=== PATIENT | male | born 1955 | race Caucasian/White ===

== ENCOUNTER 2023-12-28 07:50 | Day surgery (SDC) | payer MEDICARE, SELFPAY ==
--- NOTE | 2023-12-28 | PATH_ITS ---
[facility] Accession Number: [id number] No. of containers..02 Tissue . 01 Material submitted: . PART A: colon - ASCENDING POLYP PART B: sigmoid colon - SIGMOID POLYP . 01 Diagnosis: A. COLON POLYP, ASCENDING, POLYPECTOMY: Sessile serrated adenoma. . B. SIGMOID COLON, POLYP, POLYPECTOMY: Tubular adenoma. MRV 01/04/2024 1304 Local . 01 Electronically signed: . Kristin Valdez MD, Pathologist NPI- [id number] . 01 Gross description: . Part A: ASCENDING POLYP: Received in formalin are 2 fragment(s) of pearce, soft tissue measuring 0.1 x 0.1 x 0.1 cm to 0.3 x 0.3 x 0.3 cm submitted entirely in 1 cassette(s) Part B: SIGMOID POLYP: Received in formalin are 2 fragment(s) of pearce, soft tissue measuring 0.2 x 0.2 x 0.1 cm to 0.3 x 0.1 x 0.1 cm submitted entirely in 1 cassette(s) /DARLENE 12/29/2023 2252 Local . 01 Pathologist provided ICD-10: D12.6 . 01 CPT . 258354, [id number] Specimen Comment: A courtesy copy of this report has been sent to [phone] Performed at: [facility] [address] [place] [address] [id number] MD Tristan Elliott MD Phone: [phone]
[2023-12-28] MEDS: FLEETS ENEMA 1 EACH PR (08:09)
[2023-12-28] MEDS: LACTATED RINGERS 1,000 ML 42 ML IV (08:10)
[2023-12-28 08:21] VITALS: BP 121/81; PULSE 53; RESP 18; TEMP 36.3; O2SAT 99
--- NOTE | 2023-12-28 08:38 | PM.HP.1 ---
History of Present Illness History of Present Illness Date Patient Seen: 12/28/23 Time Patient Seen: 08:38 Chief complaint: Screening Colonoscopy Narrative: 68-year-old man here for screening colonoscopy. Last colonoscopy 15 years ago normal. No family history of intestinal malignancy. No abdominal concerns today. [facility] Social History Smoking Status: Current some day smoker alcohol intake: current Meds Home Medications and Allergies Home Medications Medication Instructions Recorded Confirmed Type No Known Home Medications 12/28/23 12/28/23 History Allergies Allergy/AdvReac Type Severity Reaction Status Date / Time No Known Drug Allergies Allergy Verified 12/28/23 08:17 Exam Vital Signs (past 8 hours): - 12/28/23 08:21 Temperature 97.3 F L Pulse Rate 53 L Respiratory Rate 18 Blood Pressure 121/81 Pulse Oximetry 99 Oxygen Delivery Method Room Air Oxygen Delivery Method Room Air Assessment & Plan Assessment & Plan narrative: The patient requires colorectal screening and colonoscopy is recommended. Technical details were discussed. Risks, benefits, alternatives explained. Risks including but not limited to myocardial infarction, aspiration, bleeding, pain, missed lesion, incomplete examination, need for further radiographic studies, intestinal injury, and need for major abdominal surgery were discussed. All questions were answered to their satisfaction, and they are in agreement with this plan.
[2023-12-28 09:15] VITALS: BP 107/75; PULSE 48; RESP 15; TEMP 36.2; O2SAT 96
--- NOTE | 2023-12-28 09:18 | P.OP.COLON_ITS ---
Operative Date/Time/Diagnoses Date of procedure: 12/28/23 Time of procedure: 09:18 Pre-op diagnosis: Colorectal screening Procedure & Clinicians Study performed: Screening colonoscopy Polypectomy Tattoo placement Same procedure as scheduled: Yes Indications: Colorectal screening Surgeon: Yasmani Knight Procedure Notes Procedure in detail: The history and physical was performed/updated and the patient is ASA class is 2. The procedure was discussed in detail with the patient. Potential risks complications including infection, bleeding, missed diagnosis, perforation, need for surgery, and were explained. Their questions were answered and informed consent was obtained. Patient was brought to the procedure room and placed standard monitoring equipment. The patient's vital signs were monitored continuously throughout the entire procedure. Prior to starting time-out was performed. The patient was placed in the left lateral recumbent position. Procedural sedation was administered by anesthesia. Examination began with a thorough inspection of the perianal area there was no evidence of fissures, fistulae, external hemorrhoids or cutaneous malignancy. The colonoscopy scope was then placed into the anal canal and was advanced to the cecum, which was identified by the ileocecal valve, the appendiceal orifice and the confluence of the taenia. The scope was then slowly withdrawn examining colon thoroughly in all directions, irrigating it of any residual stool. The scope was retroflexed within the rectum The patient tolerated the procedure well. They will be discharged once criteria are met. The prep was of fair quality. The withdrawl time was 11 minutes. FINDINGS * Ascending colon-prominent irregular mucosa versus polyp biopsy performed with forceps. Mucosa tattooed with ink injection adjacent to the lesion * Sigmoid colon polyp 3 5 mm removed biopsy forceps * Diverticulosis of descending colon moderate * Internal hemorrhoids Specimen(s): other (Ascending and sigmoid colon polyps) Impression: Colonic polyps x2 Post-procedure Recommendations: High fiber diet Plan for aftercare: Follow-up is dependent on pathology findings Disposition: same day surgery
[2023-12-28 09:20] VITALS: BP 115/73; PULSE 47; RESP 15; O2SAT 96
[2023-12-28 09:25] VITALS: BP 136/83; PULSE 46; RESP 15; O2SAT 98
[2023-12-28 09:30] VITALS: BP 117/77; PULSE 57; RESP 16; TEMP 36.2; O2SAT 99
== END 2023-12-28 09:48 | disposition home or self-care (01) ==
PROVIDERS: PCP Internal Medicine; Referring Provider Surgery; Visit Provider Surgery
PROC: 0DJD8ZZ Inspection of Lower Intestinal Tract, Via Natural or Artificial Opening Endoscopic (ICD-10-PCS; CPT 45378; principal; 2023-12-28 08:45)
DX: Z12.11 Encounter for screening for malignant neoplasm of colon (principal); K57.30 Diverticulosis of large intestine without perforation or abscess without bleeding; K64.8 Other hemorrhoids; D12.2 Benign neoplasm of ascending colon; D12.5 Benign neoplasm of sigmoid colon
CPT/HCPCS: 45381; 45380; J2704